=== PATIENT | female | born 1995 | race Two or more races ===

== ENCOUNTER 2019-03-13 15:41 | Observation (INO) | payer SELFPAY ==
[~2019-03-13] VITALS: Ht 157.5 cm; Wt 90.7 kg
[2019-03-13] MEDS ORDERED: LACTATED RINGERS 1,000 ML IV SCH (16:15)
[2019-03-13 17:22] LABS: CLARITY URINE CLEAR (CLEAR); COLOR URINE YELLOW (YELLOW); KETONES URINE NEGATIVE (NEGATIVE); LEUKOCYTE ESTERASE URINE NEGATIVE (NEGATIVE); NITRITE URINE NEGATIVE (NEGATIVE); OCCULT BLOOD URINE NEGATIVE (NEGATIVE); PH URINE 7.5 (4.5-8.0); PROTEIN URINE NEGATIVE (NEGATIVE); UROBILINOGEN URINE 0.2 E.U./dL (0.2-1.0)
[2019-03-13] MEDS ORDERED: PNV1TABL50 MT (18:02)
== END 2019-03-13 18:25 | disposition home or self-care (01) ==
LOC: 8 EST LDRP 15:41
PROVIDERS: ADMIT Specialist; ATTEND Specialist
DX: O21.2 Late vomiting of pregnancy (principal); O26.893 Other specified pregnancy related conditions, third trimester; R10.11 Right upper quadrant pain; Z3A.32 32 weeks gestation of pregnancy
CPT/HCPCS: 36415; 76700; 80051; 81003; 96360; 96361; 99281; G0378; J7120

== ENCOUNTER 2019-03-13 18:47 | Emergency (ER) | payer MEDICAID ==
[~2019-03-13] VITALS: Ht 152.4 cm; Wt 89.0 kg
[~2019-03-13 18:47] MED LIST: PNV1TABL50 MT
[2019-03-13] MEDS ORDERED: SODIUM CHLORIDE 0.9% 1,000 ML IV ONE (19:52)
[2019-03-13] MEDS ORDERED: ONDANSETRON HCL 4MG/2ML INJ IV STA (19:52)
[2019-03-13 21:06] LABS: CLARITY URINE CLEAR (CLEAR); COLOR URINE YELLOW (YELLOW); KETONES URINE NEGATIVE (NEGATIVE); LEUKOCYTE ESTERASE URINE 1+ (NEGATIVE); NITRITE URINE NEGATIVE (NEGATIVE); OCCULT BLOOD URINE NEGATIVE (NEGATIVE); PROTEIN URINE NEGATIVE (NEGATIVE); SPECIFIC GRAVITY URINE 1.008 (1.005-1.030); UROBILINOGEN URINE 0.2 E.U./dL (0.2-1.0)
[2019-03-13 23:50] LABS: BASOPHILS % 0.3 % (0.0-2.0); EOSINOPHILS % 0.7 % (0.0-5.0); HEMOGLOBIN. 9.9 g/dL (12.0-16.0); MEAN CORPUSCULAR HEMOGLOBIN 25.2 pg (28.0-32.0); MEAN CORPUSCULAR VOLUME 76.6 fL (81.0-99.0); MEAN PLATELET VOLUME 8.6 fl (7.4-10.4); PLATELET 235 x1000/uL (130-400); RED BLOOD CELL COUNT 3.92 mill/uL (4.2-5.4)
[2019-03-13 23:52] LABS: CHLORIDE 110 mEq/L (98-107)
[2019-03-14] MEDS ORDERED: ACETAMINOPHEN 500MG TABLET PO NR (00:45)
[2019-03-14 01:08] VITALS: BP 119/69
== END 2019-03-14 01:12 | disposition home or self-care (01) ==
LOC: ER 18:47
DX: O99.013 Anemia complicating pregnancy, third trimester (principal); O99.613 Diseases of the digestive system complicating pregnancy, third trimester; K80.80 Other cholelithiasis without obstruction; K80.50 Calculus of bile duct without cholangitis or cholecystitis without obstruction; Z3A.32 32 weeks gestation of pregnancy; R10.11 Right upper quadrant pain; Z79.899 Other long term (current) drug therapy
CPT/HCPCS: 36415; 80053; 81003; 83690; 85025; 96374; 99283; J2405; J7030